=== PATIENT | male | born 2000 | race Caucasian/White ===

== ENCOUNTER 2023-10-17 16:44 | Emergency (ER) | payer OTHER ==
[~2023-10-17] VITALS: Ht 167.6 cm; Wt 91.2 kg
[2023-10-17 17:26] VITALS: BP 137/86; TEMP 98.5; O2SAT 100
== END 2023-10-17 20:47 | disposition home or self-care (01) ==
LOC: ER 16:44
DX: R20.0 Anesthesia of skin (principal); R20.2 Paresthesia of skin

== ENCOUNTER 2023-12-09 09:41 | Emergency (ER) | payer OTHER ==
[~2023-12-09] VITALS: Ht 167.6 cm; Wt 90.7 kg
[2023-12-09] MEDS ORDERED: TETRAcaine 5 ML BOTTLE ONE (10:22)
[2023-12-09] MEDS: TETRACAINE HCL 0.5% OPHTALMIC 15 ML BOTTLE OP ONE (10:52)
[2023-12-09 11:15] VITALS: BP 131/84; TEMP 98; O2SAT 99
== END 2023-12-09 11:15 | disposition home or self-care (01) ==
LOC: ER 09:45
DX: H53.8 Other visual disturbances (principal); H53.2 Diplopia; R51.9 Headache, unspecified
CPT/HCPCS: 70450-TC